=== PATIENT | male | born 1940 | race Caucasian/White ===

== ENCOUNTER 2020-11-13 14:40 | Emergency (ER) | payer MEDICARE, BC ==
[~2020-11-13] VITALS: Ht 180.3 cm; Wt 84.1 kg
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
[2020-11-13 17:50] VITALS: BP 118/76
== END 2020-11-13 17:51 | disposition home or self-care (01) ==
LOC: ER 14:40
DX: R53.1 Weakness (principal); I25.10 Atherosclerotic heart disease of native coronary artery without angina pectoris; E78.00 Pure hypercholesterolemia, unspecified; I10 Essential (primary) hypertension; E11.9 Type 2 diabetes mellitus without complications; E07.9 Disorder of thyroid, unspecified; Z95.1 Presence of aortocoronary bypass graft
CPT/HCPCS: 99284